=== PATIENT | male | born 1970 | race Caucasian/White ===

== ENCOUNTER 2019-05-01 10:17 | Emergency (ER) | payer MEDICAID ==
[~2019-05-01] VITALS: Ht 170.2 cm; Wt 73.0 kg
[2019-05-01] MEDS ORDERED: LORAZEPAM 2MG/ML CPJ IM STA ×4 (10:27→12:56)
[2019-05-01] MEDS ORDERED: OLANZAPINE 10 MG/VIAL IM STA (10:27)
[2019-05-01] MEDS ORDERED: DIPHENHYDRAMINE 50MG/ML VIAL IM STA (10:27)
[2019-05-01] MEDS ORDERED: SODIUM CHLORIDE 0.9% 1,000 ML IV ONE (10:27)
[2019-05-01 11:01] LABS: BASOPHILS % 0.3 % (0.0-2.0); EOSINOPHILS % 0.2 % (0.0-5.0); HEMATOCRIT. 46.9 % (42.0-52.0); HEMOGLOBIN. 16.3 g/dL (14.0-18.0); LYMPHOCYTES % 10.1 % (20.0-50.0); MEAN CORPUSCULAR HEMOGLOBIN 29.8 pg (28.0-32.0); MEAN CORPUSCULAR VOLUME 85.7 fL (80.0-94.0); MEAN PLATELET VOLUME 8.7 fl (7.4-10.4); MONOCYTES % 7.1 % (2.0-8.0); NEUTROPHILS % 82.3 % (40.0-76.0); PLATELET 228 x1000/uL (130-400); RED BLOOD CELL COUNT 5.47 mill/uL (4.7-6.1)
[2019-05-01 11:03] LABS: CHLORIDE 111 mEq/L (98-107)
[2019-05-01 11:06] LABS: ETHANOL BLOOD < 10 mg/dL
[2019-05-01 11:27] LABS: CLARITY URINE CLEAR (CLEAR); COLOR URINE YELLOW (YELLOW); KETONES URINE TRACE (NEGATIVE); LEUKOCYTE ESTERASE URINE NEGATIVE (NEGATIVE); NITRITE URINE NEGATIVE (NEGATIVE); OCCULT BLOOD URINE NEGATIVE (NEGATIVE); PH URINE 6.5 (4.5-8.0); PROTEIN URINE 1+ (NEGATIVE); SPECIFIC GRAVITY URINE 1.026 (1.005-1.030)
[2019-05-01 11:41] LABS: *BENZODIAZEPINES SCREEN URINE NEGATIVE (NEGATIVE); METHADONE URINE SCREEN NEGATIVE (NEGATIVE); OPIATES URINE SCREEN NEGATIVE (NEGATIVE)
[2019-05-01 11:42] LABS: *AMPHETAMINES SCREEN URINE PRESUMTIVE POSITIVE (NEGATIVE); *BARBITURATES SCREEN URINE NEGATIVE (NEGATIVE); CANNABINOID URINE SCREEN PRESUMTIVE POSITIVE (NEGATIVE); PHENCYCLIDINE URINE SCREEN NEGATIVE (NEGATIVE)
[2019-05-01 11:43] LABS: *COCAINE SCREEN URINE NEGATIVE (NEGATIVE)
[2019-05-01] MEDS ORDERED: OLANZAPINE 10 MG/VIAL IM ONE (13:00)
[2019-05-02 09:15] VITALS: BP 132/68
== END 2019-05-02 09:27 | disposition home or self-care (01) ==
LOC: ER 10:17
DX: F15.129 Other stimulant abuse with intoxication, unspecified (principal); F12.129 Cannabis abuse with intoxication, unspecified; F16.10 Hallucinogen abuse, uncomplicated; G40.909 Epilepsy, unspecified, not intractable, without status epilepticus; Z78.1 Physical restraint status; Z88.8 Allergy status to other drugs, medicaments and biological substances
CPT/HCPCS: 36415; 80053; 80305; 80320; 81003; 85025; 93005; 96372; 99284; J1200; J2060; J3490; J7030; G0480